=== PATIENT | female | born 1945 | race Two or more races ===

== ENCOUNTER 2017-09-13 09:08 | Outpatient (CLI) | payer OTHER | END 2017-09-13 09:15 | disposition home or self-care (01) | LOC: LAB 09:08 | DX: E11.65 Type 2 diabetes mellitus with hyperglycemia (principal); D68.8 Other specified coagulation defects; D64.89 Other specified anemias; E03.8 Other specified hypothyroidism; E78.4 Other hyperlipidemia ==